=== PATIENT | male | born 1990 | race Caucasian/White ===

== ENCOUNTER 2023-11-14 14:36 | Emergency (ER) | payer OTHER, SELFPAY ==
[2023-11-14 14:41] VITALS: BP 152/112; PULSE 89; TEMP 36.4; O2SAT 98; BMI 34.1
[2023-11-14 14:46] VITALS: PULSE 88
--- NOTE | 2023-11-14 14:48 | US_ITS ---
The [address] [address] Patient Name: BRANDY LO MRN: [id number] date: 1990 Sex: M Assigned Patient Location: ED.MAIN Current Patient Location: ED.MAIN Accession/Order Number: [id number] Exam Date: 11/14/2023 14:50 Report Date: 11/14/2023 15:28 At the request of: MICHAEL VERNON Procedure: US venous doppler LE LT EXAMINATION: US venous doppler LE LT HISTORY: DVT COMPARISON: No relevant comparison available. FINDINGS: REGION: Left lower extremity THROMBI: None. COMPRESSIBILITY: Normal compressibility. FLOW: Normal waveform and antegrade flow between 5 and 20 cm/s. OTHER: Patent varicose vein within proximal thigh corresponding to patient's area of pain. US/US venous doppler LE LT IMPRESSION: 1. No deep vein thrombus within the left lower extremity. 2. Patent varicose vein within proximal thigh corresponding to patient's area of tenderness. No evidence of thrombosis/superficial thrombophlebitis. Electronically authenticated by: DANIELITO MARISCAL Date: 11/14/2023 15:28
--- NOTE | 2023-11-14 14:48 | ED.EXTPRO1 ---
HPI - Extremity Problem General Chief complaint: Extremity Problem, Nontraumatic Stated complaint: LOWER EXTREMITY PAIN Time Seen by Provider: 11/14/23 14:40 Mode of arrival: walk-in History of Present Illness HPI Narrative: Patient is a 33-year-old male who presents to the emergency department with concern for pain in the left anterior thigh that began yesterday. He states he called a friend of his who is a nurse and she told him it may be a blood clot so he and his significant other came to the emergency department to rule this out. He denies any mechanism of injury or trauma. He reports pain proximal to the knee. Patient significant other was worried because they could see the veins in his leg today. Patient denies any swelling, calf pain. No history of DVT or PE. No medications taken prior to arrival Related Data Previous Rx's ?Medication ?Instructions ?Recorded ketorolac 10 mg tablet 10 mg PO TID PRN pain #10 tabs 11/14/23 Allergies Allergy/AdvReac Type Severity Reaction Status Date / Time No Known Drug Allergies Allergy Verified 11/14/23 14:41 Review of Systems ROS Constitutional Denies: fever or chills Ears, nose, mouth, and throat Denies: throat pain Cardiovascular Denies: chest pain Respiratory Denies: shortness of breath or cough Gastrointestinal Denies: nausea or vomiting Integumentary/Breast Denies: rash Hematologic/Lymphatic Denies: easy bruising or easy bleeding Exam Narrative Exam Narrative: Gen.: Awake, alert, in no distress Head: Normocephalic, atraumatic ENT: Moist mucous membranes Respiratory: No respiratory distress Extremities: Moves extremities equally, bilateral calves are soft and symmetric, nontender. No appreciable swelling, redness, wounds or red streaking of the left thigh. No bony tenderness of the ankles or knees bilaterally. Psych: Normal mood and affect Neuro: No focal neuro deficit Skin: Warm, dry, intact Constitutional Vital Signs, click to edit/add: Last Vital Signs Temp 97.6 F 11/14/23 14:41 Pulse 79 11/14/23 15:05 Resp 18 11/14/23 15:05 BP 165/107 H 11/14/23 15:05 Pulse Ox 97 11/14/23 15:05 O2 Del Method Room Air 11/14/23 14:41 Course Vital Signs Vital signs: Vital Signs Temperature 97.6 F 11/14/23 14:41 Pulse Rate 89 11/14/23 14:41 Respiratory Rate 18 11/14/23 14:41 Blood Pressure 152/112 H 11/14/23 14:41 Pulse Oximetry 98 11/14/23 14:41 Oxygen Delivery Method Room Air 11/14/23 14:41 Temperature 97.6 F 11/14/23 14:41 Pulse Rate 79 11/14/23 15:05 Respiratory Rate 18 11/14/23 15:05 Blood Pressure 165/107 H 11/14/23 15:05 Pulse Oximetry 97 11/14/23 15:05 Oxygen Delivery Method Room Air 11/14/23 14:41 MDM - Extremity (Nontraumatic) MDM Narrative Medical decision making narrative: Ultrasound no evidence of DVT, polysomnographic technologist did note a varicose vein in the area where the patient is having pain, he was made aware of this although I suspect musculoskeletal pain to the left thigh. He was treated with Toradol and Robaxin in the ER and discharged home with Toradol as needed. Apply ice to the area. Rest, ice, gentle stretching and follow-up with PCP. No evidence of cellulitis or swelling at this time. Return to the ER if symptoms change or worsen SUPERVISED APC VISIT, PHYSICIAN ATTESTATION: Based on the medical record the care appears appropriate. ? Medical Records Attestation: I reviewed the patient's medical records. Imaging Data Venous US: Attestation: I have reviewed the pertinent imaging results. Discharge Plan Discharge Stand Alone Forms: Portal Instructions Chief Complaint: Extremity Problem, Nontraumatic Clinical Impression: Acute pain of left thigh Patient Disposition: Home, Self-Care Time of Disposition Decision: 15:12 Condition: Good Prescriptions / Home Meds: New ketorolac 10 mg tablet 10 mg PO TID PRN (Reason: pain) Qty: 10 0RF Print Language: Swedish Instructions: Leg Pain (ED) Referrals: Tina Daigle NP [Nurse Practitioner] - 1 week
[2023-11-14] MEDS: KETOROLAC TROMETHAMINE 10 MG TABLET PO (15:00)
[2023-11-14] MEDS: METHOCARBAMOL 500 MG TABLET 1000 MG PO (15:00)
[2023-11-14 15:05] VITALS: BP 165/107; PULSE 79; O2SAT 97
== END 2023-11-14 15:37 | disposition home or self-care (01) ==
PROVIDERS: Emergency Provider Student in an Organized Health Care Education/Training Program
DX: M79.652 Pain in left thigh (principal)
CPT/HCPCS: 93971; 99284